=== PATIENT | female | born 1945 | race Caucasian/White ===

== ENCOUNTER → 2018-03-23 | Outpatient (CLI) | payer OTHER ==
[~2018-03-23] MED LIST: ASPI81CH PO; Armour Thyroid90 MG PO; CALCA500CH; CHOL10002; LEVSOD137 PO; Omeprazole20 M1 PO; Pravachol80 MG PO; THYR60 PO
[2018-03-23 15:05] LABS: Source, Urine Clean Catch
[2018-03-23 16:36] LABS: Bilirubin, Urine Neg (Neg); Blood, Urine 2+ (Neg); Glucose Qualitative, Urine Neg (Neg); Ketones, Urine Neg (Neg); Leukocyte Esterase, Urine 3+ (Neg); Nitrite, Urine Neg (Neg); Protein, Urine Neg (Neg); Urobilinogen, Urine NORM (Normal)
[2018-03-23 16:53] LABS: Appearance, Urine Hazy (Clear); Color, Urine Yellow (P-Yellow)
[2018-03-23 16:55] LABS: White Blood Cells, Urine 50-100 /hpf (0-5)
[2018-03-23 16:56] LABS: Red Blood Cells, Urine 0-2 /hpf (0-2)
[2018-03-23 16:57] LABS: Bacteria Rare /hpf; Squamous Epithelial Cells Rare /hpf (Few)
== END ==
LOC: LAB SHORT 14:34 → LAB 14:34
PROVIDERS: Internal Medicine
DX: R30.0 Dysuria (principal)
CPT/HCPCS: 81001; 87077; 87086; 87147; 87186

== ENCOUNTER → 2018-04-17 | Outpatient (CLI) | payer OTHER ==
[2018-04-17 15:37] LABS: Source, Urine Clean Catch
[2018-04-17 16:40] LABS: Appearance, Urine Clear (Clear); Bilirubin, Urine Neg (Neg); Blood, Urine Neg (Neg); Color, Urine Yellow (P-Yellow); Glucose Qualitative, Urine Neg (Neg); Ketones, Urine Neg (Neg); Leukocyte Esterase, Urine Neg (Neg); Nitrite, Urine Neg (Neg); Protein, Urine Neg (Neg); Urobilinogen, Urine NORM (Normal)
== END | disposition home or self-care (01) ==
LOC: LAB SHORT 15:33 → LAB 15:33 → EDSTATUS 04-17 11:00 → LAB FUT 04-17 11:00
PROVIDERS: Internal Medicine
DX: R30.0 Dysuria (principal)
CPT/HCPCS: 81003

== ENCOUNTER → 2018-06-01 | Outpatient (CLI) | payer OTHER | END | disposition home or self-care (01) | LOC: LAB SHORT 17:13 → LAB 17:13 | DX: L02.91 Cutaneous abscess, unspecified (principal) | CPT/HCPCS: 87070; 87075; 87077; 87147; 87186; 87205 ==

== ENCOUNTER 2019-04-17 07:59 | Day surgery (SDC) | payer OTHER ==
[~2019-04-17] VITALS: Ht 160 cm; Wt 74.0 kg
[~2019-04-17 07:59] MED LIST changes: +LEVO-T125 MCG PO
[2019-04-17] MEDS ORDERED: PSEU120ER PO (09:25)
--- NOTE | 2019-04-17 09:53 | NUR ---
04/17/19 0953 ARIANE KRUEGER 1 IV ATTEMPT VALVE STOPPED CATHETER 2 IV ATTEMPT ON RIGHT WRIST SUCCESSFUL
== END 2019-04-17 11:08 | disposition home or self-care (01) ==
LOC: ORSCSDS 07:59
PROVIDERS: Internal Medicine Gastroenterology
PROC: 0DJD8ZZ Inspection of Lower Intestinal Tract, Via Natural or Artificial Opening Endoscopic (ICD-10-PCS; principal; 2019-04-17 10:15)
DX: Z12.11 Encounter for screening for malignant neoplasm of colon (principal); Z86.010 Personal history of colon polyps; K64.4 Residual hemorrhoidal skin tags; K57.30 Diverticulosis of large intestine without perforation or abscess without bleeding; K21.9 Gastro-esophageal reflux disease without esophagitis; E03.9 Hypothyroidism, unspecified; I10 Essential (primary) hypertension; Z79.899 Other long term (current) drug therapy
CPT/HCPCS: J2704; J7120

== ENCOUNTER 2019-04-25 15:16 | Emergency (ER) | payer OTHER ==
[~2019-04-25] VITALS: Ht 160 cm; Wt 72.6 kg
[~2019-04-25 15:16] MED LIST changes: +PSEU120ER PO
[2019-04-25 15:38] LABS: BASOPHILS ABSOLUTE AUTO 0.05 K/mm3 (0.00-0.23); BASOPHILS PERCENT AUTO 1 % (0-2); EOSINOPHILS ABSOLUTE AUTO 0.22 K/mm3 (0.00-0.68); EOSINOPHILS PERCENT AUTO 3 % (0-6); Hemoglobin 13.5 g/dL (11.5-16.0); IMMATURE GRAN ABSOLUTE AUTO 0.02 K/mm3 (0.00-0.10); IMMATURE GRAN PERCENT AUTO 0 % (0-1); LYMPHOCYTES PERCENT AUTO 37 % (21-46); MONOCYTES ABSOLUTE AUTO 0.46 K/mm3 (0.16-1.47); MONOCYTES PERCENT AUTO 6 % (4-13); Mean Corpuscular HGB 29.9 pg (26.0-34.0); Mean Corpuscular HGB Conc 32.9 g/dL (31.5-36.5); Mean Corpuscular Volume 91 fL (80-100); NEUTROPHILS ABSOLUTE AUTO 4.56 K/mm3 (1.96-9.15); NEUTROPHILS PERCENT AUTO 54 % (41-73); Platelet Count 202 K/mm3 (150-400); RDW Coefficient Variation 14.2 % (11.7-14.2); Red Blood Cell Count 4.52 M/mm3 (3.80-5.20); White Blood Cell Count 8.41 K/mm3 (4.00-11.30)
[2019-04-25 15:50] LABS: Albumin, Blood 3.1 g/dL (3.4-5.0); Bilirubin, Total 0.2 mg/dL (0.1-1.0); Bun/Creatinine Ratio 26.2 (12.0-20.0); Calcium, Blood 9.2 mg/dL (8.5-10.1); Creatinine, Blood 1.07 mg/dL (0.40-1.00); Globulin, Blood 3.1 g/dL (2.2-4.0); Potassium, Blood 3.8 mmol/L (3.5-5.5); Total Protein, Blood 6.2 g/dL (6.4-8.2)
== END 2019-04-25 17:16 | disposition home or self-care (01) ==
LOC: ER 15:16
PROVIDERS: Emergency Medicine
DX: E86.1 Hypovolemia (principal); R58 Hemorrhage, not elsewhere classified; E03.9 Hypothyroidism, unspecified; Z87.891 Personal history of nicotine dependence; Z79.899 Other long term (current) drug therapy
CPT/HCPCS: 80053; 85025; 93005; 93010; 99284-25

== ENCOUNTER 2020-08-13 15:25 | Emergency (ER) | payer OTHER ==
[~2020-08-13] VITALS: Ht 160 cm; Wt 73.0 kg
[2020-08-13 16:06] LABS: BASOPHILS ABSOLUTE AUTO 0.04 K/mm3 (0.00-0.23); BASOPHILS PERCENT AUTO 1 % (0-2); EOSINOPHILS ABSOLUTE AUTO 0.04 K/mm3 (0.00-0.68); EOSINOPHILS PERCENT AUTO 1 % (0-6); Hematocrit 37.2 % (33.0-51.0); Hemoglobin 11.7 g/dL (11.5-16.0); IMMATURE GRAN ABSOLUTE AUTO 0.02 K/mm3 (0.00-0.10); IMMATURE GRAN PERCENT AUTO 0 % (0-1); LYMPHOCYTES ABSOLUTE AUTO 1.74 K/mm3 (0.84-5.20); LYMPHOCYTES PERCENT AUTO 23 % (21-46); MONOCYTES ABSOLUTE AUTO 0.66 K/mm3 (0.16-1.47); MONOCYTES PERCENT AUTO 9 % (4-13); Mean Corpuscular HGB 23.6 pg (26.0-34.0); Mean Corpuscular HGB Conc 31.5 g/dL (31.5-36.5); Mean Corpuscular Volume 75 fL (80-100); Mean Platelet Volume 12.5 fL (9.1-12.4); NEUTROPHILS ABSOLUTE AUTO 5.25 K/mm3 (1.96-9.15); NEUTROPHILS PERCENT AUTO 68 % (41-73); Platelet Count 311 K/mm3 (150-400); RDW Coefficient Variation 14.7 % (11.7-14.2); RDW Standard Deviation 39.8 fL (35.1-46.3); Red Blood Cell Count 4.95 M/mm3 (3.80-5.20); White Blood Cell Count 7.75 K/mm3 (4.00-11.30)
[2020-08-13] MEDS ORDERED: ASPI81CH PO (16:23)
[2020-08-13] MEDS ORDERED: Vitamin B-121000 MCG (16:23)
[2020-08-13] MEDS ORDERED: ESOMEPRAZOLE MA20 MG PO (16:23)
[2020-08-13 16:43] LABS: Alanine Aminotransfer (ALT/SGP 22 U/L (12-78); Albumin, Blood 3.6 g/dL (3.4-5.0); Alk Phos 125 U/L (50-136); Anion Gap 9 mmol/L (6-16); Aspartate Aminotrans (AST/SGOT 24 U/L (12-37); Bilirubin, Total 0.4 mg/dL (0.1-1.0); Blood Urea Nitrogen 16 mg/dL (8-24); Bun/Creatinine Ratio 15.4 (12.0-20.0); CO2, Blood 24 mmol/L (21-32); Calcium, Blood 9.7 mg/dL (8.5-10.1); Chloride, Blood 102 mmol/L (98-108); Creatinine, Blood 1.04 mg/dL (0.40-1.00); Globulin, Blood 3.7 g/dL (2.2-4.0); Glomerular Filtration Rate 55 (60-); Glucose, Blood 86 mg/dL (70-99); Sodium, Blood 135 mmol/L (136-145); Total Protein, Blood 7.3 g/dL (6.4-8.2); Troponin I <0.015 ng/mL (0.000-0.040)
[2020-08-13 16:55] LABS: Appearance, Urine Clear (Clear); Bilirubin, Urine Neg (Neg); Blood, Urine 1+ (Neg); Color, Urine Yellow (P-Yellow); Glucose Qualitative, Urine Neg (Neg); Ketones, Urine 3+ (Neg); Leukocyte Esterase, Urine 1+ (Neg); Nitrite, Urine Neg (Neg); Protein, Urine Neg (Neg); Specific Gravity, Urine 1.015 (1.003-1.022); Urobilinogen, Urine NORM (Normal)
[2020-08-13 17:07] LABS: Source, Urine Clean Catch
[2020-08-13 17:08] LABS: Bacteria Few /hpf; Other Crystals Mod /hpf; Red Blood Cells, Urine 0-2 /hpf (0-2); Squamous Epithelial Cells Few /hpf (Few)
== END 2020-08-13 19:25 | disposition home or self-care (01) ==
LOC: ER 15:25
PROVIDERS: Physician Assistant
DX: R55 Syncope and collapse (principal); Z79.82 Long term (current) use of aspirin; Z79.899 Other long term (current) drug therapy; Z87.891 Personal history of nicotine dependence
CPT/HCPCS: 36415; 80053; 81001; 84439; 84484; 85025; 87086; 93005; 93010; 99284-25

== ENCOUNTER → 2020-08-30 | Outpatient (CLI) | payer OTHER ==
[~2020-08-30] MED LIST changes: +ESOMEPRAZOLE MA20 MG PO; +Vitamin B-121000 MCG
[2020-09-02 10:14] LABS: Stool Occult Bld Immuno 1 Negative (NEGATIVE); Stool Occult Bld Immuno 2 Negative (NEGATIVE)
== END | disposition home or self-care (01) ==
LOC: LAB SHORT 21:15 → LAB 21:15
PROVIDERS: Internal Medicine
DX: D50.0 Iron deficiency anemia secondary to blood loss (chronic) (principal)
CPT/HCPCS: 82274

== ENCOUNTER 2020-09-22 00:12 | Day surgery (SDC) | payer OTHER ==
[~2020-09-22 00:12] MED LIST changes: -LEVO-T125 MCG PO; +LEVSOD100 PO
--- NOTE | 2020-09-22 10:33 | NUR ---
COSYNTROPIN ADMINISTRATION THIS STUDENT NURSE ADMINISTERED IM INJECTION IN L DELTOID UNDER PAVAN AGARWAL. WITNESSED BY INSTRUCTOR PANDA DE LA TORRE RN.
== END 2020-09-22 10:30 | disposition home or self-care (01) ==
LOC: ATC 00:12
DX: R53.83 Other fatigue (principal); E78.5 Hyperlipidemia, unspecified; M81.0 Age-related osteoporosis without current pathological fracture; E03.9 Hypothyroidism, unspecified; D50.8 Other iron deficiency anemias; I10 Essential (primary) hypertension; Z79.899 Other long term (current) drug therapy; Z79.82 Long term (current) use of aspirin
CPT/HCPCS: 80400; 82533; 96372; J0834

== ENCOUNTER → 2020-10-29 | Outpatient (CLI) | payer OTHER | END | disposition home or self-care (01) | LOC: LAB 15:25 → LAB SHORT 15:25 | DX: R93.89 Abnormal findings on diagnostic imaging of other specified body structures (principal) | CPT/HCPCS: 88108; 88305 ==

== ENCOUNTER → 2021-12-08 | Outpatient (CLI) | payer OTHER ==
[~2021-12-08] MED LIST changes: +COLLAGEN PO; +ESOM20 PO; +HYALURONIC ACID PO; +IRON PO; +MSM500 MG PO; +Magnesium30 MG PO; +OMEGA-3 + VITA200 ML PO; +OXAYDO5 M1 PO; +STOOL SOFTNER PO; +TYLENOL ARTHRITIS PO; +VITAMIN B125000 MC1 PO; +VITAMIN D310 MC4 PO; +Vitamin B Comple1 EA PO; +[UNRECOGNIZED DRUG - CODE] PO
== END | disposition home or self-care (01) ==
LOC: LAB SHORT 16:39 → LAB 16:39
DX: Z22.322 Carrier or suspected carrier of Methicillin resistant Staphylococcus aureus (principal)
CPT/HCPCS: 87070; 87077; 87186; 87205

== ENCOUNTER → 2021-12-13 | Outpatient (CLI) | payer OTHER ==
[~2021-12-13] MED LIST changes: -OXAYDO5 M1 PO
== END | disposition home or self-care (01) ==
LOC: LAB SHORT 17:35 → LAB 17:35
DX: Z22.322 Carrier or suspected carrier of Methicillin resistant Staphylococcus aureus (principal)
CPT/HCPCS: 87070; 87205

== ENCOUNTER 2022-03-11 06:08 | Day surgery (SDC) | payer OTHER ==
[~2022-03-11] VITALS: Ht 160 cm; Wt 77.5 kg
--- NOTE | 2022-03-11 12:25 | NUR ---
PATIENT CAME BACK TODAY 03/11/22 @ 1200. POD 0 LEFT TOTAL HIP PATIENT IS A&OX4. VS ARE WNL AND IS ON RA. PATIENT DID HAVE A SPINAL DURING PROCEDURE BUT IS ALREADY HAVING TINGLING SENSATION AND CAN MOVE HER TOES. DENIES PAIN AT THIS TIME. LEFT HIP HAS THE PRIMEO DRESSING WITH A MEDIPORT DRESSING ON TOP THAT IS C/D/I. PEDAL PULSES ARE STRONG. PATIENT IS TOLERATING SMALL AMOUNTS OF PO INTAKE. SHE IS SITTING UP IN BED WITH CALL LIGHT IN REACH.
[2022-03-11] MEDS ORDERED: OXAYDO5 M1 PO (13:56)
--- NOTE | 2022-03-11 16:33 | NUR ---
SHIFT SUMMARY: POD 0 LEFT TOTAL HIP PATIENT IS A&OX4. VS ARE WNL AND IS ON RA. PATIENT DENIES PAIN BUT RECIEVED IV TORADOL SCHEDULED. LEFT HIP HAS A PRIMEO DRESSING WITH A MEDIPORT LIKE DRESSING ON TOP THAT IS C/D/I. DENIES ANY NUMBNESS OR TINGLING IN ALL EXTREMITIES. PATIENT IS A SBA WITH FWW AND GAIT BELT AND EVEN WORKED WITH PT ONCE THIS AFTERNOON. PATIENT IS TOLERATING PO INTAKE AND IS VOIDING. CALL LIGHT WITHIN REACH. PATIENT IS CURRENTLY SITTING UP IN A CHAIR WITH LEGS ELEVATED. THE PLAN IS TO WORK WITH PT AGAIN IN THE MORNING AND TO HAVE PAIN MANAGED WITH PO PAIN MEDS THEN BE DISCHARGED HOME IF APPROPRIATE.
--- NOTE | 2022-03-12 04:46 | NUR ---
SHIFT SUMMARY A/O X4. POD1 L TOTAL HIP. AMBULATING W/ SBA, FWW, AND GB. TOLERATING PO INTAKE AND VOIDING WELL. PAIN MANAGED W/ TORADOL AND TYLENOL. VITAL SIGNS STABLE. DRESSINGS INTACT W/ SCANT AMOUNT OF RED DRIED DRAINAGE. WILL PLAN TO DC HOME TODAY. WILL CONTINUE TO MONITOR AND REPORT TO ONCOMING RN.
[2022-03-12 04:55] LABS: BASOPHILS ABSOLUTE AUTO 0.01 K/mm3 (0.00-0.23); BASOPHILS PERCENT AUTO 0 % (0-2); EOSINOPHILS ABSOLUTE AUTO 0.03 K/mm3 (0.00-0.68); EOSINOPHILS PERCENT AUTO 0 % (0-6); Hematocrit 33.4 % (33.0-51.0); Hemoglobin 11.3 g/dL (11.5-16.0); IMMATURE GRAN ABSOLUTE AUTO 0.03 K/mm3 (0.00-0.10); IMMATURE GRAN PERCENT AUTO 0 % (0-1); LYMPHOCYTES ABSOLUTE AUTO 2.48 K/mm3 (0.84-5.20); LYMPHOCYTES PERCENT AUTO 22 % (21-46); MONOCYTES ABSOLUTE AUTO 0.97 K/mm3 (0.16-1.47); MONOCYTES PERCENT AUTO 9 % (4-13); Mean Corpuscular HGB 30.8 pg (26.0-34.0); Mean Corpuscular HGB Conc 33.8 g/dL (31.5-36.5); Mean Corpuscular Volume 91 fL (80-100); Mean Platelet Volume 11.5 fL (9.1-12.4); NEUTROPHILS ABSOLUTE AUTO 7.68 K/mm3 (1.96-9.15); NEUTROPHILS PERCENT AUTO 69 % (41-73); Platelet Count 174 K/mm3 (150-400); RDW Standard Deviation 50.4 fL (35.1-46.3); Red Blood Cell Count 3.67 M/mm3 (3.80-5.20)
[2022-03-12 05:13] LABS: Bun/Creatinine Ratio 16.7 (12.0-20.0); Calcium, Blood 9.8 mg/dL (8.5-10.1); Creatinine, Blood 1.08 mg/dL (0.40-1.00); Potassium, Blood 4.2 mmol/L (3.5-5.5)
== END 2022-03-12 11:02 | disposition home or self-care (01) ==
LOC: ORSCMMR 06:08 → SURS 11:38 → ORSCMMR 03-12 11:02
PROVIDERS: Orthopaedic Surgery
PROC: 0SRB0JA Replacement of Left Hip Joint with Synthetic Substitute, Uncemented, Open Approach (ICD-10-PCS; principal; 2022-03-11 07:30)
DX: M16.12 Unilateral primary osteoarthritis, left hip (principal); E78.00 Pure hypercholesterolemia, unspecified; E03.9 Hypothyroidism, unspecified; K21.9 Gastro-esophageal reflux disease without esophagitis; Z79.82 Long term (current) use of aspirin; Z79.899 Other long term (current) drug therapy; Z87.891 Personal history of nicotine dependence
CPT/HCPCS: 36415; 72170; 80048; 83735; 85025; 97110; 97116; 97161; 97530; A9270; C1713; C1776; J0171; J0690; J0735; J1100; J1885; J2250; J2405; J2704; J2795; J3010; J7120

== ENCOUNTER → 2024-04-30 | Outpatient (CLI) | payer OTHER ==
[~2024-04-30] MED LIST changes: +OXAYDO5 M1 PO
[2024-04-30 16:56] LABS: Source, Urine Clean Catch
[2024-04-30 19:04] LABS: Appearance, Urine Clear (Clear); Bilirubin, Urine Neg (Neg); Blood, Urine 1+ (Neg); Color, Urine Yellow (P-Yellow); Glucose Qualitative, Urine Neg (Neg); Ketones, Urine Neg (Neg); Leukocyte Esterase, Urine Neg (Neg); Nitrite, Urine Neg (Neg); Protein, Urine Neg (Neg); Specific Gravity, Urine 1.015 (1.003-1.022); Urobilinogen, Urine NORM (Normal)
[2024-04-30 19:19] LABS: Bacteria Few /hpf; Red Blood Cells, Urine 0-2 /hpf (0-2); Squamous Epithelial Cells Rare /hpf (Few); White Blood Cells, Urine 0-2 /hpf (0-5)
== END | disposition home or self-care (01) ==
LOC: LAB SHORT 16:54 → LAB 16:54
PROVIDERS: Internal Medicine
DX: R30.0 Dysuria (principal)
CPT/HCPCS: 81001

== ENCOUNTER 2024-12-31 10:05 | Day surgery (SDC) | payer OTHER ==
[~2024-12-31] VITALS: Ht 160 cm; Wt 78.7 kg
[~2024-12-31 10:05] MED LIST changes: +Lactated Ringer's 1,000 ML IV ONE; +propofoL 50 ML IV ONE
[2024-12-31] MEDS ORDERED: PREG25 (10:30)
[2024-12-31] MEDS ORDERED: MODAFINIL100 M4 (10:31)
[2024-12-31] MEDS ORDERED: JARDIANCE10 MG (10:32)
[2024-12-31] MEDS ORDERED: ROSUVASTATIN CAL5 MG (10:32)
[2024-12-31] MEDS ORDERED: MODA200 (10:32)
[2024-12-31] MEDS ORDERED: OMEP20ER (10:32)
[2024-12-31] MEDS ORDERED: HAIR, SKIN AND1 EAC3 (10:33)
[2024-12-31] MEDS ORDERED: Lactated Ringer's 1,000 ML IV ONE (11:18)
[2024-12-31] MEDS ORDERED: Ondansetron HCl 2 MG / ML 2ML Vial ONE (12:22)
[2024-12-31 13:14] VITALS: BP 149/109
--- NOTE | 2024-12-31 13:32 | NUR ---
12/31/24 1332 Francheska Collazo REPORT RCVD UPON PT ARRIVAL TO STEPDOWN FROM [facility] THAT WHILE IN PROCEDURE PATIENT NOTED TO HAVE RETCHING AND RECEIVED ZOFRAN 4MG IV X1 AND THAT PATIENT'S SPO2 DROPPED INTO THE 70S BRIEFLY AND REQUIRED BAG MASK VENTILATION AND THEN SPO2 INCREASED QUICKLY BACK UP TO 100%. PATIENT NOTED TO HAVE FREQUENT COUGH IN STEPDOWN BUT SPO2 MAINTAINED ABOVE 97% ON RA THROUGHOUT SDU STAY. LUNG SOUNDS WERE CLEAR IN ALL LOBES. PATIENT DENIED ANY SOB OR CHEST DISCOMFORT. DID VERBALIZE DISCOMFORT IN THROAT THAT SHE DESCRIBED MORE "DRYNESS" VS ACTUAL PAIN. WARM TEA PROVIDED TO PATIENT AND PATIENT STATED THAT THIS HELPED THE DISCOMFORT IN HER THROAT. PT'S DIASTOLIC BP ELEVATED DURING SDU STAY. PT HAS HISTORY OF DIASTOLIC HEART FAILURE. CONSULTED WITH DR MOCTEZUMA REGARDING ELEVATED BP READINGS AND REGARDING PT'S COUGH AND PER DR MOCTEZUMA PT WAS ADVISED TO MONITOR BP AT HOME AND TO RECHECK LATER TODAY AND TOMORROW, IF BP REMAINS ELEVATED PATIENT TO SEE PCP SAMANTHA. PT ACKNOWLEDGED THAT SHE HAS A BP CUFF AT HOME AND VERBALIZES AGREEMENT THAT SHE WILL RECHECK BP AT HOME LATER TODAY AND TOMORROW AND WILL CONTACT HER PCP SHILPI WHITFIELD MD TOMORROW IF BP STILL ELEVATED. PER DR MOCTEZUMA THIS RN ALSO SPOKE WITH PATIENT REGARDING S/S OF ASPIRATION TO WATCH FOR SUCH FEVER, CHEST PAIN, CHEST PRESSURE/DISCOMFORT, PRODUCTIVE COUGH, SOB, WORSENING COUGH AND ADVISED PATIENT TO GO TO ER FOR ANY LIFE THEATENING SYMPTOMS OR URGENT CARE FOR ANY NON-LIFE THREATENING SYMPTOMS AND TO REQUEST CXR. PT VERBALIZED UNDERSTANDING AND AGREEANCE. PT'S DAUGHTER WAS BROUGHT BACK IN TO EXAM ROOM AND ABOVE WAS DISCUSSED IN PRESENCE OF DAUGHTER WELL. INCENTIVE SPIROMETER GIVEN TO PATIENT TO USE AT HOME. INSTRUCTED ON USE AND PATIENT DEMONSTRATED APPROPRIATE USAGE.
== END 2024-12-31 13:00 | disposition home or self-care (01) ==
LOC: ORSCSDS 10:05
PROVIDERS: Internal Medicine Gastroenterology
PROC: 0DJD8ZZ Inspection of Lower Intestinal Tract, Via Natural or Artificial Opening Endoscopic (ICD-10-PCS; principal; 2024-12-31 11:45)
PROC: 0DB68ZX Excision of Stomach, Via Natural or Artificial Opening Endoscopic, Diagnostic (ICD-10-PCS; principal; 2024-12-31 11:45)
DX: K21.00 Gastro-esophageal reflux disease with esophagitis, without bleeding (principal); R19.5 Other fecal abnormalities; K29.70 Gastritis, unspecified, without bleeding; K44.9 Diaphragmatic hernia without obstruction or gangrene; K57.30 Diverticulosis of large intestine without perforation or abscess without bleeding; Z86.0101 Personal history of adenomatous and serrated colon polyps; Z79.899 Other long term (current) drug therapy
CPT/HCPCS: 88305; 88342; J2405; J2704; J7120